=== PATIENT | male | born 1975 | race African-American/Black ===

== ENCOUNTER 2017-08-17 16:45 | Emergency (ER) | payer SELFPAY ==
[~2017-08-17] VITALS: Ht 175.3 cm; Wt 95.5 kg
[~2017-08-17 16:45] MED LIST: NAPR500 PO; Z.0.NO CURRENT MEDS
[2017-08-17 16:47] VITALS: BP 219/99; PULSE 127; RESP 14; TEMP 99.6; O2SAT 98
[2017-08-17 19:50] VITALS: BP 158/97; PULSE 82; RESP 16; TEMP 98.9; O2SAT 99
[2017-08-17] MEDS ORDERED: METO-309 PO (19:55)
--- NOTE | 2017-08-17 19:55 | PD ---
HPI Chief Complaint: Hypertension Time Seen by Provider: 19:47 Travel History International Travel<30 days: No Contact w/Intl Traveler<30days: No Traveled to known affect area: No History of Present Illness HPI 42-year-old male with history of hypertension here today for a prescription for antihypertensives. The patient reports that he was released from skilled nursing today after being there for 3 weeks. He knows that he was on Lopressor, but does not recall the other names of his antihypertensives. He is otherwise feeling well. No chest pain or dyspnea. No paresthesias or motor deficits. He has noted some upper respiratory type symptoms and a sore throat that started today. No fevers. PFSH Past Medical History Cardiovascular Problems: Yes (HTN) Social History Tobacco Use: No (former smoker) Allergies-Medications (Allergen,Severity, Reaction): Coded Allergies: No Known Allergies (Verified , 11/21/11) Reported Meds & Prescriptions Reported Meds & Active Scripts Active Lopressor (Metoprolol Tartrate) 50 Mg Tab 50 Mg PO DAILY Naprosyn (Naproxen) 500 Mg Tab 500 Mg PO BID Reported No Current Meds (Miscellaneous Medication) Misc Review of Systems Except as stated in HPI: all other systems reviewed are Neg Physical Exam Narrative GENERAL: Well-developed, well-nourished, comfortable, no apparent distress. SKIN: Focused skin assessment warm/dry. HEAD: Atraumatic. Normocephalic. EYES: Pupils equal and round. No scleral icterus. No injection or drainage. ENT: No nasal bleeding or discharge. Mucous membranes pink and moist. Normal pharynx. NECK: Trachea midline. No JVD. No nuchal rigidity. CARDIOVASCULAR: Regular rate and rhythm. RESPIRATORY: No accessory muscle use. Clear to auscultation. Breath sounds equal bilaterally. GASTROINTESTINAL: Abdomen soft, non-tender, nondistended. MUSCULOSKELETAL: No obvious deformities. No clubbing. No cyanosis. No edema. NEUROLOGICAL: Awake and alert. No obvious cranial nerve deficits. Motor grossly within normal limits. Normal speech. No focal deficits. PSYCHIATRIC: Appropriate mood and affect; insight and judgment normal. Data Data Last Documented VS Vital Signs Date Time Temp Pulse Resp B/P (MAP) Pulse Ox O2 Delivery O2 Flow Rate FiO2 08/17/17 21:24 08/17/17 19:56 16 98 08/17/17 19:50 98.9 82 Room Air Orders Orders Ed Discharge Order (08/17/17 19:55) MDM Medical Decision Making Medical Screen Exam Complete: Yes Emergency Medical Condition: Yes Differential Diagnosis Hypertension, hypertensive crisis unlikely, URI Narrative Course Initial vital signs in triage showed a heart rate of 127, blood pressure 219/99 , pulse ox 90% on room air, oral temp of 99.6F. When the patient was brought back to a room, his repeat vital signs show heart rate 82, blood pressure 158/97, pulse ox 99% on room air, oral temp of 98.9F. The patient is not displaying any signs or symptoms of hypertensive crisis. He will be discharged home with a prescription for an antihypertensive. He will be given the information to the [facility] to follow-up with this week. He was informed on when to return to the emergency department. He verbalizes understanding and agreement with plan. Diagnosis Primary Impression: Essential hypertension Referrals: [facility] 3 days Additional Instructions: Follow-up with a primary care physician this week. Return to the emergency department for worsening symptoms or any other concerns. Scripts Metoprolol Tartrate (Lopressor) 50 Mg Tab 50 MG PO DAILY, #30 TAB 0 Refills Prov: Beltran Ricci MD 08/17/17 Disposition: 01 DISCHARGE HOME Condition: Stable Beltran Ricci MD Aug 17, 2017 19:55
== END 2017-08-17 21:24 | disposition home or self-care (01) ==
LOC: NEPD 16:45
DX: I10 Essential (primary) hypertension (principal); Z87.891 Personal history of nicotine dependence
CPT/HCPCS: 99283